=== PATIENT | female | born 1990 | race Caucasian/White ===

== ENCOUNTER 2018-04-25 05:11 | Emergency (ER) | payer MEDICAID ==
[~2018-04-25] VITALS: Ht 167.6 cm; Wt 63.6 kg
[2018-04-25 05:14] VITALS: Ht 167.6 cm; Wt 63.6 kg
[2018-04-25] MEDS ORDERED: PROVENTIL/2.5 MG/3 M INH (05:15)
[2018-04-25] MEDS ORDERED: VENTOLIN HFA18 GM INH (06:27)
[2018-04-25] MEDS ORDERED: AUGMENTIN 875-11 TAB PO (06:27)
[2018-04-25] MEDS ORDERED: STERAPRED DS 1010 MG PO (06:27)
[2018-04-25 06:56] VITALS: BP 115/67
== END 2018-04-25 06:58 | disposition home or self-care (01) ==
LOC: D.ER 05:11
DX: J45.901 Unspecified asthma with (acute) exacerbation (principal); F17.200 Nicotine dependence, unspecified, uncomplicated

== ENCOUNTER 2019-01-25 22:33 | Emergency (ER) | payer MEDICAID ==
[2018-04-25 05:14] VITALS: BMI 22.6
[~2019-01-25 22:33] MED LIST: AUGMENTIN 875-11 TAB PO; PROVENTIL/2.5 MG/3 M INH; STERAPRED DS 1010 MG PO; VENTOLIN HFA18 GM INH
== END 2019-01-25 22:45 | disposition left against medical advice (07) ==
LOC: D.ER 22:33
DX: F41.9 Anxiety disorder, unspecified (principal)

== ENCOUNTER 2019-03-06 11:26 | Emergency (ER) | payer MEDICAID ==
[~2019-03-06] VITALS: Ht 167.6 cm; Wt 59.1 kg
[2019-03-06 11:35] VITALS: BP 104/59; Ht 167.6 cm; Wt 59.1 kg
[2019-03-06] MEDS ORDERED: ACETAMINOPHEN500 M1 PO (12:34)
[2019-03-06] MEDS ORDERED: CYCLOBENZAPRINE10 MG PO (12:34)
[2019-03-06] MEDS ORDERED: IBUPROFEN800 MG PO (12:34)
== END 2019-03-06 13:38 | disposition home or self-care (01) ==
LOC: D.ER 11:26
DX: S93.602A Unspecified sprain of left foot, initial encounter (principal); Y93.83 Activity, rough housing and horseplay; Y92.019 Unspecified place in single-family (private) house as the place of occurrence of the external cause